=== PATIENT | female | born 1945 | race Caucasian/White ===

== ENCOUNTER 2018-05-17 15:42 | Inpatient (IN) ==
[2018-05-17] MEDS ORDERED: PHARMACY CONSULT - DOSE _____ XX SCH (17:00)
[2018-05-17] MEDS: NS 1000 ML 1,000 ML IV SCH (17:27)
[2018-05-17 17:55] VITALS: BMI 28.0
[2018-05-17 17:57] LABS: BASOPHILS # (AUTO) 0.1 X10^3/uL (0.0-0.1); BASOPHILS % (AUTO) 0.9 % (0.2-1.0); EOSINOPHILS # (AUTO) 0.5 x10^3/uL (0.0-0.2); EOSINOPHILS % (AUTO) 3.8 % (0.9-2.9); HEMATOCRIT 33.8 % (36.0-47.0); HEMOGLOBIN 11.4 g/dL (12.0-16.0); LYMPHOCYTES # (AUTO) 2.1 X10^3/uL (1.3-2.9); LYMPHOCYTES % (AUTO) 16.5 % (21.0-51.0); MEAN CORPUSCULAR HEMOGLOBIN 29.5 pg (27.0-34.0); MEAN CORPUSCULAR HGB CONC 33.8 g/dL (33.0-35.0); MEAN CORPUSCULAR VOLUME 87.2 fL (80.0-100.0); MEAN PLATELET VOLUME 10.5 fL (7.4-11.0); MONOCYTES # (AUTO) 0.7 x10^3/uL (0.3-0.8); MONOCYTES % (AUTO) 5.4 % (0.0-13.0); NEUTROPHILS # (AUTO) 9.4 x10^3/uL (2.2-4.8); NEUTROPHILS % (AUTO) 73.4 % (42.0-75.0); PLATELET COUNT 102 X10^3/uL (150.0-450.0); RED BLOOD COUNT 3.88 X10^6/uL (3.5-5.4); WHITE BLOOD COUNT 12.8 X10^3/uL (3.6-10.0)
[2018-05-17 18:12] LABS: ALANINE AMINOTRANSFERASE 23 Units/L (12-78); ALBUMIN 3.3 g/dL (3.4-5.0); ALKALINE PHOSPHATASE 101 Units/L (46-116); ASPARTATE AMINO TRANSFERASE 17 Units/L (15-37); BLOOD UREA NITROGEN 15 mg/dL (7-18); CARBON DIOXIDE 29.8 mmol/L (21-32); CHLORIDE 102 mmol/L (98-107); COR CA(FOR HYPOALB) 9.6 mg/dL (8.5-10.1); CREATININE 0.89 mg/dL (0.55-1.02); SODIUM 138 mmol/L (136-145); TOTAL PROTEIN 7.8 g/dL (6.4-8.2); eGFR NON BLACK RACES > 60 (>60)
--- NOTE | 2018-05-17 18:27 | CT ---
CT head without contrast Indication: Attention to right ear, concern for mastoiditis Comparison: 01/08/2016 Technique: CT images of the head were obtained without contrast. Automatic exposure control was utili groopifyd. Findings: There is generalized age-appropriate cortical involution with concomitant ventricular and s ulcal enlargement. Patchy areas of white matter hypoattenuation are similar to prior and most compati ble with chronic microangiopathy. There is no evidence for acute bleed, mass effect, or abnormal extr a-axial collection. The mastoid air cells and middle ears are grossly clear. There is mild bilateral ethmoid and maxillary sinus mucosal thickening with small right maxillary sinus fluid level. Impression: No acute intracranial abnormality. Bilateral ethmoid and maxillary sinusitis, with small right maxillary sinus fluid level, suggesting a cute sinusitis. The mastoid air cells and middle ears are essentially clear. Reported By:
[2018-05-17 18:32] LABS: BILIRUBIN,URINE NEGATIVE (NEGATIVE); BLOOD/HEMOGLOBIN,URINE 5+ (NEGATIVE); GLUCOSE, URINE NEGATIVE (NEGATIVE); KETONES,URINE NEGATIVE (NEGATIVE); LEUKOCYTE ESTERASE ,URINE 3+ (NEGATIVE); NITRITES,URINE POSITIVE (NEGATIVE); PROTEIN,URINE 3+ (NEGATIVE); UROBILINOGEN,URINE NORMAL (NORMAL)
[2018-05-17 18:35] LABS: COLOR,URINE DARK YELLOW (YELLOW)
[2018-05-17 18:36] LABS: APPEARANCE,URINE TURBID (CLEAR)
[2018-05-17 18:41] LABS: BACTERIA,URINE 1+ /HPF (NEGATIVE); RBC,URINE 20-30 /HPF (NONE SEEN); SQUAMOUS EPITHELIAL CELL,UR NEGATIVE /HPF (NEGATIVE)
[2018-05-17] MEDS ORDERED: POTASSIUM CHLORIDE LIQ 20 MEQ UDC PO PRN (19:55)
[2018-05-17] MEDS ORDERED: POTASSIUM CHL 40 MEQ/NS 0.45% 500 ML IV PRN (19:55)
[2018-05-17] MEDS ORDERED: POTASSIUM CHL 60 MEQ/NS 0.45% 500 ML IV PRN (19:55)
[2018-05-17] MEDS ORDERED: K-RIDER 10 MEQ/NS 100 ML 10 MEQ/100 ML BAG IV PRN (19:55)
[2018-05-17] MEDS ORDERED: K-LYTE EFFERVESCENT PO PRN (19:55)
[2018-05-17] MEDS: VANCOMYCIN 1 GRAM PREMIX (ADDVANTAGE) 250 ML IV SCH (20:54)
[2018-05-17] MEDS: FORTAZ or TAZICEF VIAL INJ 1 G in NS 100 ML IV + SPIKE MINIBAG* 100 ML IV SCH (22:00)
[2018-05-17] MEDS: MAGNESIUM SULFATE 1 GRAM/100 mL PREMIX 1 GM/100 ML BAG IV PRN (23:11)
[2018-05-18] MEDS: MAGNESIUM SULFATE 1 GRAM/100 mL PREMIX 1 GM/100 ML BAG IV PRN (00:26)
[2018-05-18] MEDS ORDERED: TYLENOL 325 MG TAB PO PRN (02:12)
[2018-05-18] MEDS: FORTAZ or TAZICEF VIAL INJ 1 G in NS 100 ML IV + SPIKE MINIBAG* 100 ML IV SCH ×3 (04:39→20:11)
[2018-05-18 06:31] LABS: BASOPHILS # (AUTO) 0.1 X10^3/uL (0.0-0.1); BASOPHILS % (AUTO) 0.8 % (0.2-1.0); EOSINOPHILS # (AUTO) 0.4 x10^3/uL (0.0-0.2); EOSINOPHILS % (AUTO) 3.6 % (0.9-2.9); HEMATOCRIT 30.9 % (36.0-47.0); HEMOGLOBIN 10.6 g/dL (12.0-16.0); LYMPHOCYTES # (AUTO) 2.7 X10^3/uL (1.3-2.9); LYMPHOCYTES % (AUTO) 22.7 % (21.0-51.0); MEAN CORPUSCULAR HEMOGLOBIN 29.6 pg (27.0-34.0); MEAN CORPUSCULAR HGB CONC 34.3 g/dL (33.0-35.0); MEAN CORPUSCULAR VOLUME 86.3 fL (80.0-100.0); MEAN PLATELET VOLUME 9.3 fL (7.4-11.0); MONOCYTES # (AUTO) 0.6 x10^3/uL (0.3-0.8); MONOCYTES % (AUTO) 5.2 % (0.0-13.0); NEUTROPHILS % (AUTO) 67.7 % (42.0-75.0); PLATELET COUNT 71 X10^3/uL (150.0-450.0); RED BLOOD COUNT 3.57 X10^6/uL (3.5-5.4); RED CELL DISTRIBUTION WIDTH 14.2 % (11.6-16.5); WHITE BLOOD COUNT 11.8 X10^3/uL (3.6-10.0)
[2018-05-18 06:39] LABS: ALANINE AMINOTRANSFERASE 20 Units/L (12-78); ALBUMIN 2.9 g/dL (3.4-5.0); ALKALINE PHOSPHATASE 91 Units/L (46-116); ASPARTATE AMINO TRANSFERASE 15 Units/L (15-37); BLOOD UREA NITROGEN 10 mg/dL (7-18); CARBON DIOXIDE 30.1 mmol/L (21-32); CHLORIDE 105 mmol/L (98-107); COR CA(FOR HYPOALB) 9.9 mg/dL (8.5-10.1); CREATININE 0.82 mg/dL (0.55-1.02); MAGNESIUM 2.5 mg/dL (1.7-2.9); SODIUM 140 mmol/L (136-145); TOTAL PROTEIN 7.1 g/dL (6.4-8.2); eGFR NON BLACK RACES > 60 (>60)
[2018-05-18 07:09] LABS: PLATELET MORPHOLOGY COMMENT NORMAL (NORMAL)
[2018-05-18] MEDS: NS 1000 ML 1,000 ML IV SCH ×2 (09:43→20:11)
[2018-05-18] MEDS: MUCINEX DM PO SCH ×2 (10:41→20:11)
[2018-05-18] MEDS: DUONEB 0.5 MG/3 MG NEB SCH ×4 (11:04→20:48)
[2018-05-18] MEDS ORDERED: [UNRECOGNIZED DRUG - OTHER] PO SCH (11:45)
[2018-05-18] MEDS ORDERED: PERCOCET TAB 5/325 MG PO PRN (12:07)
[2018-05-18] MEDS ORDERED: PATIENT'S HOME MEDICATION (Oxycodone-Acetaminophen [Oxycodone-Acetaminophen] 1 TAB) PO SCH (13:00)
[2018-05-18] MEDS: LOPRESSOR TAB 50 MG PO SCH ×2 (13:03→20:12)
[2018-05-18] MEDS: PROzac PO SCH ×2 (13:04→20:12)
[2018-05-18] MEDS: NORVASC TAB 10 MG PO SCH (13:04)
[2018-05-18] MEDS: MOBIC TAB 15 MG PO SCH (13:04)
[2018-05-18] MEDS: LYRICA CAP 75 MG PO SCH ×3 (13:04→21:00)
--- NOTE | 2018-05-18 13:25 | RAD ---
Chest, AP Indication: Cough, shortness of breath Comparison: 03/03/2016 Findings: The cardiac silhouette is unremarkable. The lungs are clear. No significant pleural effusio n or pneumothorax. Impression: No acute chest process. Reported By:
[2018-05-18] MEDS: XANAX PO SCH (20:12)
[2018-05-18] MEDS: TAPENTADOL PO PRN (20:14)
[2018-05-18] MEDS: VANCOMYCIN 1 GRAM PREMIX (ADDVANTAGE) 250 ML IV SCH (20:18)
[2018-05-18] MEDS ORDERED: DESMOPRESSIN PO SCH (21:00)
[2018-05-18] MEDS ORDERED: SALINE 3% 15 ML NEB TX ONE (21:44)
[2018-05-18] MEDS ORDERED: SALINE 3% 15 ML NEB TX NEB ONE (21:45)
[2018-05-19] MEDS: FORTAZ or TAZICEF VIAL INJ 1 G in NS 100 ML IV + SPIKE MINIBAG* 100 ML IV SCH ×3 (04:41→21:51)
[2018-05-19] MEDS: LYRICA CAP 75 MG PO SCH ×4 (04:41→21:51)
[2018-05-19 05:38] LABS: BASOPHILS # (AUTO) 0.1 X10^3/uL (0.0-0.1); BASOPHILS % (AUTO) 0.9 % (0.2-1.0); EOSINOPHILS # (AUTO) 0.5 x10^3/uL (0.0-0.2); EOSINOPHILS % (AUTO) 6.3 % (0.9-2.9); HEMATOCRIT 30.7 % (36.0-47.0); HEMOGLOBIN 10.5 g/dL (12.0-16.0); LYMPHOCYTES # (AUTO) 2.9 X10^3/uL (1.3-2.9); MEAN CORPUSCULAR HEMOGLOBIN 29.8 pg (27.0-34.0); MEAN CORPUSCULAR HGB CONC 34.4 g/dL (33.0-35.0); MEAN CORPUSCULAR VOLUME 86.7 fL (80.0-100.0); MEAN PLATELET VOLUME 8.9 fL (7.4-11.0); MONOCYTES # (AUTO) 0.8 x10^3/uL (0.3-0.8); MONOCYTES % (AUTO) 9.3 % (0.0-13.0); NEUTROPHILS # (AUTO) 4.2 x10^3/uL (2.2-4.8); NEUTROPHILS % (AUTO) 49.5 % (42.0-75.0); PLATELET COUNT 201 X10^3/uL (150.0-450.0); RED BLOOD COUNT 3.54 X10^6/uL (3.5-5.4); RED CELL DISTRIBUTION WIDTH 14.2 % (11.6-16.5); WHITE BLOOD COUNT 8.6 X10^3/uL (3.6-10.0)
[2018-05-19 05:40] LABS: ALANINE AMINOTRANSFERASE 17 Units/L (12-78); ALBUMIN 2.7 g/dL (3.4-5.0); ALKALINE PHOSPHATASE 85 Units/L (46-116); ASPARTATE AMINO TRANSFERASE 16 Units/L (15-37); BLOOD UREA NITROGEN 11 mg/dL (7-18); CALCIUM 8.6 mg/dL (8.5-10.1); CARBON DIOXIDE 30.7 mmol/L (21-32); CHLORIDE 106 mmol/L (98-107); COR CA(FOR HYPOALB) 9.6 mg/dL (8.5-10.1); CREATININE 0.87 mg/dL (0.55-1.02); SODIUM 142 mmol/L (136-145); eGFR NON BLACK RACES > 60 (>60)
[2018-05-19] MEDS: DUONEB 0.5 MG/3 MG NEB SCH ×4 (08:48→21:37)
[2018-05-19] MEDS: NS 1000 ML 1,000 ML IV SCH (09:44)
[2018-05-19] MEDS: NORVASC TAB 10 MG PO SCH (09:45)
[2018-05-19] MEDS: MOBIC TAB 15 MG PO SCH (09:45)
[2018-05-19] MEDS: MUCINEX DM PO SCH ×2 (09:45→20:30)
[2018-05-19] MEDS: LOPRESSOR TAB 50 MG PO SCH ×2 (09:45→20:29)
[2018-05-19] MEDS: PROzac PO SCH ×2 (09:45→20:29)
[2018-05-19] MEDS: TAPENTADOL PO PRN (20:29)
[2018-05-19] MEDS: XANAX PO SCH (20:29)
[2018-05-19] MEDS: VANCOMYCIN 1 GRAM PREMIX (ADDVANTAGE) 250 ML IV SCH (20:30)
--- NOTE | 2018-05-19 20:56 | DR.UPDATE ---
H&P Update History and Physical Update: WAS SEEN IN THE OFFICE TODAY. A H&P WAS COMPLETED PRIOR TO ADMISSION. PATIENT HAS BEEN SEEN AND EXAMINED WITH NO CHANGES NOTED TO H&P Changes noted: NO Yes with the following:
--- NOTE | 2018-05-19 20:59 | PCM.PROG ---
Progress Note - Progress Note for Day of Date of Exam: 05/18/18 - Subjective Subjective: WAS ADMITTED FOR EXTERNAL OTITIS MEDIA, SEVERE HEADACHE, NECK PAIN, RULE OUT MASTOIDITIS. TODAY, SHE IS ALERT AND ORIENTED, LYING IN BED ON MORNING ROUNDS. SHE CONTINUES WITH COMPLAINTS OF A HEADACHE. SHE ALSO REPORTS A PRODUCTIVE COUGH, SHORTNESS OF BREATH, AND MILD SUPRAPUBIC PAIN. SHE STATES THAT NECK PAIN HAS SLIGHTLY IMPROVED. ON EXAMINATION, RIGHT EXTERNAL AUDITORY CANAL IS NOTED WITH TENDERNESS, ERYTHEMATOUS, EDEMATOUS, AND NARROWED. HEART IS REGULAR IN RATE AND RHYTHM. BILATERAL LUNGS ARE NOTED WITH DIMINISHED LUNG SOUNDS THROUGHOUT. ABDOMEN IS ROUND, SOFT, AND NOTED WITH MILD, SUPRAPUBIC TENDERNESS. HER VITLAS TODAY ARE 98.7-64-20-96%-132/83. LABS WERE OBTAINED. ABNORMAL LAB VALUES INCLUDE THE FOLLOWING: WBC 11.8, HGB 10.6, HCT 30.9, PLT COUNT 71, GLUCOSE 100, ALBUMIN 2.9. A URINALYSIS WAS OBTAINED ON ADMISSION AND REVEALED: WBC TNTC, RBC 20-30, LEUKOCYTES 3+, BACTERIA 1+, OCCULT BLOOD 5+, NITRITIES POSITIVE. URINE, BLOOD, AND EAR CULTURES ARE PENDING. A BRAIN CT WAS OBTAINED AND REVEALED: No acute intracranial abnormality. Bilateral ethmoid and maxillary sinusitis, with small right maxillary sinus fluid level, suggesting acute sinusitis. The mastoid air cells and middle ears are essentially clear. TODAY, WE WILL OBTAIN A CHEST XRAY AND A SUPUTUM CULTURE. WE WILL START DUONEBS AND MUCINEX DM BID. OTHERWISE, WE WILL CONTINUE WITH IV ANTIBIOTICS AND CURRENT PLAN OF CARE. WE WILL FOLLOW UP WITH AM LABS AND CONTINUE TO MONITOR PATIENT. - Past Medical Family Social History Past Med/Fam/Surg Hx: No changes since H&P Allergies: Allergies No Known Drug Allergies Allergy (Verified 05/17/18 16:39) - Review of Systems ROS: No change since H&P - Vital Signs and I&O's Vital Signs: Temperature 98.5 F Pulse Rate [Right Radial] 68 Pulse Rate 69 Respiratory Rate 20 Blood Pressure [Right Arm] 144/73 Blood Pressure [Left Arm] 141/65 Blood Pressure 168/91 O2 Sat by Pulse Oximetry 93 Intake and Output: Intake & Output 05/17/18 05/18/18 05/19/18 05/20/18 11:59 11:59 11:59 11:59 Intake Total 900 / 900 2819 / 2819 700 / 700 Balance 900 / 900 2819 / 2819 700 / 700 - Physical Exam Oriented: Normal Eyes: Normal Ear: Right, Swelling Nose: Normal Throat: Normal Respiratory: Generalized, Diminished Cardiovascular: Normal. negative: S3, S4, Murmur : Normal Auscultation: Bowel Sounds: Normal Palpation: Normal Tenderness: Suprapubic, Mild. negative: Rebound, Guarding, Rigidity Skin: Normal Musculoskeletal: Normal Psychiatric: Normal Mood Description: Calm Affect: Normal Speech Pattern: Clear, Appropriate - Laboratory and Diagnostics Result Diagrams: 05/19/18 04:30 05/19/18 04:30 Labs: 05/17/18 17:35 Blood Blood Culture - Preliminary 05/17/18 17:26 Blood Blood Culture - Preliminary 05/17/18 17:41 Ear - Right Gram Stain - Final 05/17/18 17:41 Ear - Right Wound Culture - Preliminary 05/17/18 19:46 Urine,Clean Catch Urine Culture - Final Escherichia Coli 05/18/18 21:59 Sputum - Expectorated Sputum Sputum Culture - Final 05/18/18 21:59 Sputum - Expectorated Sputum - Final Laboratory WBC 8.6 X10^3/uL (3.6-10.0) 05/19/18 04:30 RBC 3.54 X10^6/uL (3.5-5.4) 05/19/18 04:30 Hgb 10.5 g/dL (12.0-16.0) L 05/19/18 04:30 Hct 30.7 % (36.0-47.0) L 05/19/18 04:30 MCV 86.7 fL (80.0-100.0) 05/19/18 04:30 MCH 29.8 pg (27.0-34.0) 05/19/18 04:30 MCHC 34.4 g/dL (33.0-35.0) 05/19/18 04:30 RDW 14.2 % (11.6-16.5) 05/19/18 04:30 Plt Count 201 X10^3/uL (150.0-450.0) 05/19/18 04:30 Plt Count Comment Decreased (ADEQUATE) A 05/18/18 05:25 MPV 8.9 fL (7.4-11.0) 05/19/18 04:30 Neut % (Auto) 49.5 % (42.0-75.0) 05/19/18 04:30 Lymph % (Auto) 34.0 % (21.0-51.0) 05/19/18 04:30 [place] % (Auto) 9.3 % (0.0-13.0) 05/19/18 04:30 Eos % (Auto) 6.3 % (0.9-2.9) H 05/19/18 04:30 Baso % (Auto) 0.9 % (0.2-1.0) 05/19/18 04:30 Neut # (Auto) 4.2 x10^3/uL (2.2-4.8) 05/19/18 04:30 Lymph # (Auto) 2.9 X10^3/uL (1.3-2.9) 05/19/18 04:30 [place] # (Auto) 0.8 x10^3/uL (0.3-0.8) 05/19/18 04:30 Eos # (Auto) 0.5 x10^3/uL (0.0-0.2) H 05/19/18 04:30 Baso # (Auto) 0.1 X10^3/uL (0.0-0.1) 05/19/18 04:30 Absolute Nucleated RBC 0.1 /100WBC 05/19/18 04:30 Plt Clumps, EDTA Rare 05/18/18 05:25 Plt Morphology Comment Normal (NORMAL) 05/18/18 05:25 RBC Morphology Normal (NORMAL) 05/18/18 05:25 Sodium 142 mmol/L (136-145) 05/19/18 04:30 Corrected Sodium TNP 05/19/18 04:30 Potassium 3.5 mmol/L (3.5-5.1) 05/19/18 04:30 Chloride 106 mmol/L (98-107) 05/19/18 04:30 Carbon Dioxide 30.7 mmol/L (21-32) 05/19/18 04:30 BUN 11 mg/dL (7-18) 05/19/18 04:30 Creatinine 0.87 mg/dL (0.55-1.02) 05/19/18 04:30 Est GFR (MDRD) Af Amer > 60 (>60) 05/19/18 04:30 Est GFR (MDRD) Non-Af > 60 (>60) 05/19/18 04:30 Glucose 88 mg/dL (65-99) 05/19/18 04:30 Calcium 8.6 mg/dL (8.5-10.1) 05/19/18 04:30 Corrected Calcium 9.6 mg/dL (8.5-10.1) 05/19/18 04:30 Magnesium 2.5 mg/dL (1.7-2.9) 05/18/18 05:25 Total Bilirubin 0.20 mg/dL (0.2-1.0) 05/19/18 04:30 AST 16 Units/L (15-37) 05/19/18 04:30 ALT 17 Units/L (12-78) 05/19/18 04:30 Alkaline Phosphatase 85 Units/L (46-116) 05/19/18 04:30 Total Protein 7.0 g/dL (6.4-8.2) 05/19/18 04:30 Albumin 2.7 g/dL (3.4-5.0) L 05/19/18 04:30 Globulin 4.3 g/dL (2.5-4.5) 05/19/18 04:30 Albumin/Globulin Ratio 0.6 Ratio (1.1-2.1) L 05/19/18 04:30 Specimen Type Random urine 05/17/18 18:18 Urine Color Dark yellow (YELLOW) 05/17/18 18:18 Urine Appearance Turbid (CLEAR) 05/17/18 18:18 Urine pH 5.0 (5.0 - 8.0) 05/17/18 18:18 Ur Specific [place] 1.020 (1.000-1.030) 05/17/18 18:18 Urine Protein 3+ (NEGATIVE) 05/17/18 18:18 Urine Glucose (UA) Negative (NEGATIVE) 05/17/18 18:18 Urine Ketones Negative (NEGATIVE) 05/17/18 18:18 Urine Occult Blood 5+ (NEGATIVE) 05/17/18 18:18 Urine Nitrite Positive (NEGATIVE) 05/17/18 18:18 Urine Bilirubin Negative (NEGATIVE) 05/17/18 18:18 Urine Urobilinogen Normal (NORMAL) 05/17/18 18:18 Ur Leukocyte Esterase 3+ (NEGATIVE) 05/17/18 18:18 Urine RBC 20-30 /HPF (NONE SEEN) 05/17/18 18:18 Urine WBC Tntc /HPF (NONE SEEN) 05/17/18 18:18 Ur Squamous Epith Cells Negative /HPF (NEGATIVE) 05/17/18 18:18 Urine Bacteria 1+ /HPF (NEGATIVE) 05/17/18 18:18 Ur Culture Indicated? No/not indicated 05/17/18 18:18 - Plan (1) External otitis of right ear Status: Acute Qualifiers: Otitis externa type: other infective Chronicity: acute Qualified Code(s) : H60.391 - Other infective otitis externa, right ear Plan: IV ANTIBIOTICS, CONTINUE TO MONITOR (2) Acute sinusitis Status: Acute Qualifiers: Sinusitis location: maxillary Recurrence: not specified as recurrent Qualified Code(s): J01.00 - Acute maxillary sinusitis, unspecified Plan: CONTINUE IV ANTIBIOTICS, CONTINUE TO MONITOR (3) Acute bronchitis Status: Acute Qualifiers: Bronchitis organism: unspecified organism Qualified Code(s): J20.9 - Acute bronchitis, unspecified Plan: CONTINUE IV ANTIBIOTICS, RESPIRATORY TREATMENTS, SUPPLEMENTAL OXYGEN, MUCINEX DM BID, CONTINUE TO MONITOR (4) Urinary tract infection Status: Acute Qualifiers: Urinary tract infection type: acute cystitis Hematuria presence: with hematuria Qualified Code(s): N30.01 - Acute cystitis with hematuria Plan: CONTINUE IV ANTIBIOTICS, URINE CULTURE, CONTINUE TO MONITOR
[2018-05-20] MEDS: FORTAZ or TAZICEF VIAL INJ 1 G in NS 100 ML IV + SPIKE MINIBAG* 100 ML IV SCH (05:27)
[2018-05-20] MEDS: LYRICA CAP 75 MG PO SCH (05:27)
[2018-05-20 05:45] LABS: ALANINE AMINOTRANSFERASE 17 Units/L (12-78); ALBUMIN 2.6 g/dL (3.4-5.0); ALKALINE PHOSPHATASE 80 Units/L (46-116); ASPARTATE AMINO TRANSFERASE 13 Units/L (15-37); BLOOD UREA NITROGEN 11 mg/dL (7-18); CALCIUM 8.5 mg/dL (8.5-10.1); CARBON DIOXIDE 27.8 mmol/L (21-32); CHLORIDE 108 mmol/L (98-107); COR CA(FOR HYPOALB) 9.6 mg/dL (8.5-10.1); SODIUM 143 mmol/L (136-145); TOTAL PROTEIN 6.7 g/dL (6.4-8.2); eGFR NON BLACK RACES > 60 (>60)
[2018-05-20 06:37] LABS: WHITE BLOOD COUNT 9.7 X10^3/uL (3.6-10.0)
[2018-05-20 06:38] LABS: BASOPHILS # (AUTO) 0.1 X10^3/uL (0.0-0.1); BASOPHILS % (AUTO) 1.4 % (0.2-1.0); EOSINOPHILS # (AUTO) 0.6 x10^3/uL (0.0-0.2); EOSINOPHILS % (AUTO) 5.7 % (0.9-2.9); HEMATOCRIT 29.6 % (36.0-47.0); HEMOGLOBIN 10.2 g/dL (12.0-16.0); LYMPHOCYTES # (AUTO) 2.7 X10^3/uL (1.3-2.9); LYMPHOCYTES % (AUTO) 27.6 % (21.0-51.0); MEAN CORPUSCULAR HEMOGLOBIN 30.1 pg (27.0-34.0); MEAN CORPUSCULAR HGB CONC 34.4 g/dL (33.0-35.0); MEAN CORPUSCULAR VOLUME 87.7 fL (80.0-100.0); MEAN PLATELET VOLUME 9.3 fL (7.4-11.0); MONOCYTES # (AUTO) 0.7 x10^3/uL (0.3-0.8); MONOCYTES % (AUTO) 6.9 % (0.0-13.0); NEUTROPHILS # (AUTO) 5.7 x10^3/uL (2.2-4.8); NEUTROPHILS % (AUTO) 58.4 % (42.0-75.0); PLATELET COUNT 190 X10^3/uL (150.0-450.0); RED BLOOD COUNT 3.38 X10^6/uL (3.5-5.4); RED CELL DISTRIBUTION WIDTH 14.2 % (11.6-16.5)
[2018-05-20] MEDS: DUONEB 0.5 MG/3 MG NEB SCH (09:05)
[2018-05-20] MEDS: VANCOMYCIN 1 GRAM PREMIX (ADDVANTAGE) 250 ML IV SCH (09:28)
[2018-05-20] MEDS: LOPRESSOR TAB 50 MG PO SCH (09:31)
[2018-05-20] MEDS: NORVASC TAB 10 MG PO SCH (09:31)
[2018-05-20] MEDS: MOBIC TAB 15 MG PO SCH (09:31)
[2018-05-20] MEDS: MUCINEX DM PO SCH (09:31)
[2018-05-20] MEDS: PROzac PO SCH (09:31)
[2018-05-20 10:20] VITALS: BP 119/55
--- NOTE | 2018-06-30 20:43 | PCM.PROG ---
Progress Note - Progress Note for Day of Date of Exam: 05/19/18 - Subjective Subjective: WAS ADMITTED FOR EXTERNAL OTITIS MEDIA, SEVERE HEADACHE, NECK PAIN, RULE OUT MASTOIDITIS. TODAY, SHE IS ALERT AND ORIENTED, LYING IN BED ON MORNING ROUNDS. SHE CONTINUES WITH COMPLAINTS OF A HEADACHE, A PRODUCTIVE COUGH, SHORTNESS OF BREATH, AND MILD SUPRAPUBIC PAIN. ON EXAMINATION, RIGHT EXTERNAL AUDITORY CANAL IS NOTED WITH TENDERNESS, ERYTHEMATOUS, EDEMATOUS, AND NARROWED. HEART IS REGULAR IN RATE AND RHYTHM. BILATERAL LUNGS ARE NOTED WITH DIMINISHED LUNG SOUNDS THROUGHOUT. ABDOMEN IS ROUND, SOFT, AND NOTED WITH MILD, SUPRAPUBIC TENDERNESS. HER VITALS TODAY ARE 97.9-64-18-93%-185/77. LABS WERE OBTAINED. ABNORMAL LAB VALUES INCLUDE THE FOLLOWING: HGB 10.5, HCT 30.7, ALBUMIN 2.7. BLOOD AND SPUTUM CULTURES ARE PENDING. URINE CULTURE REPORTS GROWHT OF E.COLI. TODAY, WE WILL CONTINUE WITH IV ANTIBIOTICS AND CURRENT PLAN OF CARE. OTHERWISE, WE WILL FOLLOW UP WITH AM LABS AND CONTINUE TO MONITOR PATIENT. - Past Medical Family Social History Past Med/Fam/Surg Hx: No changes since H&P Allergies: Allergies No Known Drug Allergies Allergy (Verified 05/17/18 16:39) - Review of Systems ROS: No change since H&P - Vital Signs and I&O's Vital Signs: Temperature 98.7 F Pulse Rate [Left Brachial] 68 Pulse Rate [Right Radial] 62 Pulse Rate 59 Respiratory Rate 20 Blood Pressure [Right Arm] 119/55 Blood Pressure [Left Arm] 99/51 Blood Pressure 168/91 O2 Sat by Pulse Oximetry 96 - Physical Exam Oriented: Normal Eyes: Normal Ear: Right, Swelling Nose: Normal Throat: Normal Respiratory: Generalized, Diminished Cardiovascular: Normal. negative: S3, S4, Murmur : Normal Auscultation: Bowel Sounds: Normal Palpation: Normal Tenderness: Suprapubic, Mild. negative: Rebound, Guarding, Rigidity Skin: Normal Musculoskeletal: Normal Psychiatric: Normal Mood Description: Calm Affect: Normal Speech Pattern: Clear, Appropriate - Laboratory and Diagnostics Result Diagrams: 05/20/18 06:25 05/20/18 04:40 Labs: 05/17/18 17:35 Blood Blood Culture - Final 05/17/18 17:26 Blood Blood Culture - Final 05/17/18 17:41 Ear - Right Gram Stain - Final 05/17/18 17:41 Ear - Right Wound Culture - Final 05/17/18 19:46 Urine,Clean Catch Urine Culture - Final Escherichia Coli 05/18/18 21:59 Sputum - Expectorated Sputum Sputum Culture - Final 05/18/18 21:59 Sputum - Expectorated Sputum - Final Laboratory WBC 9.7 X10^3/uL (3.6-10.0) 05/20/18 06:25 RBC 3.38 X10^6/uL (3.5-5.4) L 05/20/18 06:25 Hgb 10.2 g/dL (12.0-16.0) L 05/20/18 06:25 Hct 29.6 % (36.0-47.0) L 05/20/18 06:25 MCV 87.7 fL (80.0-100.0) 05/20/18 06:25 MCH 30.1 pg (27.0-34.0) 05/20/18 06:25 MCHC 34.4 g/dL (33.0-35.0) 05/20/18 06:25 RDW 14.2 % (11.6-16.5) 05/20/18 06:25 Plt Count 190 X10^3/uL (150.0-450.0) 05/20/18 06:25 Plt Count Comment Decreased (ADEQUATE) A 05/18/18 05:25 MPV 9.3 fL (7.4-11.0) 05/20/18 06:25 Neut % (Auto) 58.4 % (42.0-75.0) 05/20/18 06:25 Lymph % (Auto) 27.6 % (21.0-51.0) 05/20/18 06:25 [place] % (Auto) 6.9 % (0.0-13.0) 05/20/18 06:25 Eos % (Auto) 5.7 % (0.9-2.9) H 05/20/18 06:25 Baso % (Auto) 1.4 % (0.2-1.0) H 05/20/18 06:25 Neut # (Auto) 5.7 x10^3/uL (2.2-4.8) H 05/20/18 06:25 Lymph # (Auto) 2.7 X10^3/uL (1.3-2.9) 05/20/18 06:25 [place] # (Auto) 0.7 x10^3/uL (0.3-0.8) 05/20/18 06:25 Eos # (Auto) 0.6 x10^3/uL (0.0-0.2) H 05/20/18 06:25 Baso # (Auto) 0.1 X10^3/uL (0.0-0.1) 05/20/18 06:25 Absolute Nucleated RBC 0.0 /100WBC 05/20/18 06:25 Nucleated RBCs Cancelled 05/20/18 06:25 Atypical Lymphocytes Cancelled 05/20/18 06:25 Blast Cells Cancelled 05/20/18 06:25 Smudge Cells Cancelled 05/20/18 06:25 Toxic Granulation Cancelled 05/20/18 06:25 Dohle Bodies Cancelled 05/20/18 06:25 Malini Rods Cancelled 05/20/18 06:25 Plt Clumps, EDTA Rare 05/18/18 05:25 Giant Platelets Cancelled 05/20/18 06:25 Plt Morphology Comment Normal (NORMAL) 05/18/18 05:25 RBC Morphology Normal (NORMAL) 05/18/18 05:25 Dimorphic RBCs Cancelled 05/20/18 06:25 Polychromasia Cancelled 05/20/18 06:25 Hypochromasia Cancelled 05/20/18 06:25 Poikilocytosis Cancelled 05/20/18 06:25 Basophilic Stippling Cancelled 05/20/18 06:25 Anisocytosis Cancelled 05/20/18 06:25 Microcytosis Cancelled 05/20/18 06:25 Macrocytosis Cancelled 05/20/18 06:25 Spherocytes Cancelled 05/20/18 06:25 Pappenheimer Bodies Cancelled 05/20/18 06:25 Sickle Cells Cancelled 05/20/18 06:25 Target Cells Cancelled 05/20/18 06:25 Tear Drop Cells Cancelled 05/20/18 06:25 Ovalocytes Cancelled 05/20/18 06:25 Stomatocytes Cancelled 05/20/18 06:25 Helmet Cells Cancelled 05/20/18 06:25 [place] Bodies Cancelled 05/20/18 06:25 [place] Rings Cancelled 05/20/18 06:25 [place] Cells Cancelled 05/20/18 06:25 Crenated Cell Cancelled 05/20/18 06:25 Acanthocytes (Spur) Cancelled 05/20/18 06:25 Rouleaux Cancelled 05/20/18 06:25 Schistocytes Cancelled 05/20/18 06:25 Sodium 143 mmol/L (136-145) 05/20/18 04:40 Corrected Sodium TNP 05/20/18 04:40 Potassium 3.8 mmol/L (3.5-5.1) 05/20/18 04:40 Chloride 108 mmol/L (98-107) H 05/20/18 04:40 Carbon Dioxide 27.8 mmol/L (21-32) 05/20/18 04:40 BUN 11 mg/dL (7-18) 05/20/18 04:40 Creatinine 0.80 mg/dL (0.55-1.02) 05/20/18 04:40 Est GFR (MDRD) Af Amer > 60 (>60) 05/20/18 04:40 Est GFR (MDRD) Non-Af > 60 (>60) 05/20/18 04:40 Glucose 92 mg/dL (65-99) 05/20/18 04:40 Calcium 8.5 mg/dL (8.5-10.1) 05/20/18 04:40 Corrected Calcium 9.6 mg/dL (8.5-10.1) 05/20/18 04:40 Magnesium 2.5 mg/dL (1.7-2.9) 05/18/18 05:25 Total Bilirubin 0.30 mg/dL (0.2-1.0) 05/20/18 04:40 AST 13 Units/L (15-37) L 05/20/18 04:40 ALT 17 Units/L (12-78) 05/20/18 04:40 Alkaline Phosphatase 80 Units/L (46-116) 05/20/18 04:40 Total Protein 6.7 g/dL (6.4-8.2) 05/20/18 04:40 Albumin 2.6 g/dL (3.4-5.0) L 05/20/18 04:40 Globulin 4.1 g/dL (2.5-4.5) 05/20/18 04:40 Albumin/Globulin Ratio 0.6 Ratio (1.1-2.1) L 05/20/18 04:40 Specimen Type Random urine 05/17/18 18:18 Urine Color Dark yellow (YELLOW) 05/17/18 18:18 Urine Appearance Turbid (CLEAR) 05/17/18 18:18 Urine pH 5.0 (5.0 - 8.0) 05/17/18 18:18 Ur Specific [place] 1.020 (1.000-1.030) 05/17/18 18:18 Urine Protein 3+ (NEGATIVE) 05/17/18 18:18 Urine Glucose (UA) Negative (NEGATIVE) 05/17/18 18:18 Urine Ketones Negative (NEGATIVE) 05/17/18 18:18 Urine Occult Blood 5+ (NEGATIVE) 05/17/18 18:18 Urine Nitrite Positive (NEGATIVE) 05/17/18 18:18 Urine Bilirubin Negative (NEGATIVE) 05/17/18 18:18 Urine Urobilinogen Normal (NORMAL) 05/17/18 18:18 Ur Leukocyte Esterase 3+ (NEGATIVE) 05/17/18 18:18 Urine RBC 20-30 /HPF (NONE SEEN) 05/17/18 18:18 Urine WBC Tntc /HPF (NONE SEEN) 05/17/18 18:18 Ur Squamous Epith Cells Negative /HPF (NEGATIVE) 05/17/18 18:18 Urine Bacteria 1+ /HPF (NEGATIVE) 05/17/18 18:18 Ur Culture Indicated? No/not indicated 05/17/18 18:18 - Plan (1) External otitis of right ear Status: Acute Qualifiers: Otitis externa type: other infective Chronicity: acute Qualified Code(s) : H60.391 - Other infective otitis externa, right ear Plan: IV ANTIBIOTICS, CONTINUE TO MONITOR (2) Acute sinusitis Status: Acute Qualifiers: Sinusitis location: maxillary Recurrence: not specified as recurrent Qualified Code(s): J01.00 - Acute maxillary sinusitis, unspecified Plan: CONTINUE IV ANTIBIOTICS, CONTINUE TO MONITOR (3) Acute bronchitis Status: Acute Qualifiers: Bronchitis organism: unspecified organism Qualified Code(s): J20.9 - Acute bronchitis, unspecified Plan: CONTINUE IV ANTIBIOTICS, RESPIRATORY TREATMENTS, SUPPLEMENTAL OXYGEN, MUCINEX DM BID, CONTINUE TO MONITOR (4) Urinary tract infection Status: Acute Qualifiers: Urinary tract infection type: acute cystitis Hematuria presence: with hematuria Qualified Code(s): N30.01 - Acute cystitis with hematuria Plan: CONTINUE IV ANTIBIOTICS, URINE CULTURE, CONTINUE TO MONITOR
--- NOTE | 2018-07-03 23:26 | DR.CARTERD ---
- Discharge Summary for: Discharge Summary for Date of:: 05/20/18 - Admission Date Date of Admission: 05/17/18 - Admission Diagnoses Admission Diagnosis: (1) External otitis of right ear (2) Acute sinusitis (3) Acute bronchitis (4) Urinary tract infection - Discharge Date Discharge Date: 05/20/18 - Discharge Diagnoses Discharge Diagnosis: (1) E. Coli Urinary tract infection (2) External otitis of right ear (3) Acute sinusitis (4) Acute bronchitis - Hospital Course Hospital Course: Day one, Ms. Cordero was admitted for external otitis media, severe headache, neck pain, and rule out mastoiditis. Patient stated that she had a bad ear infection. Stated onset 2 weeks prior. She had been prescribed Cefdinir and an ear drop with no improvement in symptoms. She returned to the office and had swelling in her right ear and due to the symptoms. She reported that her neck hurt below both of her ears along with a bad headache and sore throat. She also reported a low grade temp of 100 "a few days ago" but no fever in the last 24 hours. She also reported associated symptoms of vomiting x's 1, decreased appetite, weakness and fatigue. She stated "I just feel so tired. I can't do anything without giving out and that's just not like me." Patient stated that she also had diarrhea but had taken Imodium and had a normal BM. Patient received Vancomycin and Ceftazidime for antibiotic therapy and we administered NS @ 50 MLS/HR for gentle IV hydration. We continued to monitor. Medical HX: Ear Infections, Neuropathy, HTN, Tachycardia, Asthma, Shallow Breathing, Gastrointestinal Ulcer, Weak Bladder, Fibromyalgia, Arthritis, Back Pain, Anemia , Anxiety, Depression, Hysterectomy, Plastic Implant in Nose. Medications: NS 1000 MLS IV @ 50 MLS/HR, Vancomycin 1 GM IV Q24H, Ceftazidime 1 GM IV Q8H, Potassium Protocol PRN, Magnesium Protocol PRN. Abnormal Labs: WBC 12.8, HGB 11.4, HCT 33.8, PLT Count 102, Albumin 3.3, A/G ratio 0.7. Urinalysis: Color Dark Yellow, Appearance Turbid, Protein 3+, Occult Blood 5+, Nitrate Positive, Leukocyte Esterase 3+, RBC 20-30, WBC Tntc Bacteria 1+. Brain CT: Findings: There is generalized age-appropriate cortical involution with concomitant ventricular and sulcal enlargement. Patchy areas of white matter hypoattenuation are similar to prior and most compatible with chronic microangiopathy. There is no evidence for acute bleed, mass effect, or abnormal extra-axial collection. The mastoid air cells and middle ears are grossly clear. There is mild bilateral ethmoid and maxillary sinus mucosal thickening with small right maxillary sinus fluid level. Impression: No acute intracranial abnormality. Bilateral ethmoid and maxillary sinusitis, with small right maxillary sinus fluid level, suggesting acute sinusitis. The mastoid air cells and middle ears are essentially clear. Day two, patient was alert and oriented. She continued with complaints of headache. She also reported a productive cough , shortness of breath, and mild suprapubic pain. She stated that neck pain had slightly improved. On examination, right external auditory canal was noted with tenderness, erythematous, edematous, and narrowed. Abdomen was round, soft, and noted with mild, suprapubic tenderness. We started duonebs and mucinex dm bid. We continued with IV antibiotics. Day three, patient continued with complaints of a headache, a productive cough, shortness of breath, and mild suprapubic pain. Right external auditory canal continued with tenderness, erythematous, edematous, and narrowed. Abdomen was round, soft, and noted with mild, suprapubic tenderness. Urine culture reported growth of E. Coli. We continued with IV antibiotics. Day four, patient reported she was feeling better. Vital signs stable. Labs wnl. Right ear improving. We planned for discharge. Instructions for medications and follow up were discussed with patient and family, both voiced understanding. Patient discharged home in stable condition with family. - Discharge Medications Discharge Medications: Home Medication List alprazolam 1 - 2 tab PO HS 05/17/18 [History] amlodipine 1 tab PO DAILY 05/17/18 [History] cyanocobalamin (vitamin B-12) 1,000 mcg IM .[id number] 05/17/18 [History] desmopressin 2 tab PO HS 05/17/18 [History] fluoxetine 1 cap PO BID 05/17/18 [History] meloxicam 1 tab PO DAILY 05/17/18 [History] oxycodone-acetaminophen 1 tab PO QID 05/17/18 [History] phendimetrazine tartrate 105 mg PO DAILY 05/17/18 [History] pregabalin 1 cap PO TID 05/17/18 [History] tapentadol 1 tab PO QID PRN 05/17/18 [History] ciprofloxacin HCl [Cipro] 500 mg PO BID #28 tab 05/20/18 [Rx] dextromethorphan-guaifenesin [Mucinex DM] 1 tab PO BID #20 tab 05/20/18 [Rx] Prescriptions: ciprofloxacin HCl [Cipro] Rudy Sanon dextromethorphan-guaifenesin [Mucinex DM] Rudy Sanon - Discharge Disposition Discharge Disposition: Patient is to follow up in our office in one week.
== END 2018-05-20 11:15 | disposition home or self-care (01) | DRG 155 ==
LOC: MED/SURG 16:28
PROVIDERS: ADMIT Internal Medicine; ATTEND Internal Medicine
DX: K21.9 Gastro-esophageal reflux disease without esophagitis; R06.02 Shortness of breath; I10 Essential (primary) hypertension; J20.8 Acute bronchitis due to other specified organisms; J01.00 Acute maxillary sinusitis, unspecified; J44.9 Chronic obstructive pulmonary disease, unspecified; E03.8 Other specified hypothyroidism; R51 Headache; H60.391 Other infective otitis externa, right ear; H92.01 Otalgia, right ear; E78.2 Mixed hyperlipidemia; N30.01 Acute cystitis with hematuria; R41.82 Altered mental status, unspecified; B96.29 Other Escherichia coli [E. coli] as the cause of diseases classified elsewhere; M54.2 Cervicalgia; E55.9 Vitamin D deficiency, unspecified
CPT/HCPCS: 36415; 70450; 71010; 71045; 80053; 81001; 83735; 85025; 87040; 87070; 87075; 87086; 87088; 87186; 87205; 94640; 97163; 97167; A4216; A4222; J0713; J3370; J3475; J3490; J7030; J7050; J7620; J8499